=== PATIENT | male | born 1995 | race Caucasian/White ===

== ENCOUNTER 2020-03-19 18:43 | Emergency (ER) | payer OTHER ==
[~2020-03-19] VITALS: Ht 175.3 cm; Wt 108.9 kg
[2020-03-19 18:52] VITALS: BP 128/70
--- NOTE | 2020-03-19 18:52 | NUR ---
TAKEN TO BED 1 VIA W/C
--- NOTE | 2020-03-19 19:07 | NUR ---
RECEIVED REPORT FORM TODD PERSON. WILL CONT CARE AT THIS TIME.
[2020-03-19] MEDS ORDERED: IBUPROFEN 600 MG TAB PO ONE (19:10)
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
--- NOTE | 2020-03-19 19:25 | NUR ---
PT REFUSED ADACEL. BONNIE BAILEY AND I EDUCATED ABOUT THE NEEDS AND EFFECTS OF ADACEL. PT STILL REFUSED ADACEL. BONNIE BAILEY AWARE.
--- NOTE | 2020-03-19 19:27 | NUR ---
XR AT BEDSIDE.
--- NOTE | 2020-03-19 20:23 | NUR ---
Patient discharged with v/s stable. Written and verbal after care instructions given and explained. Patient verbalized understanding. Wheel Chair Assisted with by parent. All questions addressed prior to discharge. Advised to follow up with PMD.
== END 2020-03-19 20:23 | disposition home or self-care (01) ==
LOC: MED 18:43
DX: S80.212A Abrasion, left knee, initial encounter (principal); S00.81XA Abrasion of other part of head, initial encounter; M79.642 Pain in left hand; V29.60XA Unspecified motorcycle rider injured in collision with unspecified motor vehicles in traffic accident, initial encounter; Y93.89 Activity, other specified; Y92.488 Other paved roadways as the place of occurrence of the external cause; Y99.8 Other external cause status
CPT/HCPCS: 73562; 73590; 90715; 99284